=== PATIENT | male | born 1975 | race American Indian/Alaskan Native ===

== ENCOUNTER 2019-05-26 18:13 | Emergency (ER) | payer SELFPAY ==
[2019-05-26] MEDS ORDERED: ZOFRAN ODT PO ONE (19:19)
--- NOTE | 2019-05-26 19:20 | Event Note ---
ED Screening Note Date of service: 05/26/19 Time: 19:18 ED Screening Note: This is a 43 y.o. M. that presents to the ER with abdominal pain and vomiting after eating [employer] chicken 1-2 hours [employer]. This initial assessment/diagnostic orders/clinical plan/treatment(s) is/are subject to change based on patients health status, clinical progression and re- assessment by fellow clinical providers in the ED. Further treatment and workup at subsequent clinical providers discretion. Patient/guardian urged not to elope from the ED as their condition may be serious if not clinically assessed and managed. Initial orders include: Labs Given zofran odt 4 mg
[2019-05-26 19:37] LABS: Basophils # (Auto) 0.1 K/mm3 (0.0-0.1); Basophils % (Auto) 1.2 % (0.0-1.8); Eosinophils # (Auto) 0.1 K/mm3 (0.0-0.4); Eosinophils % (Auto) 3.1 % (0.0-4.3); Hematocrit 45.2 % (35.5-45.6); Hemoglobin 15.2 gm/dl (11.8-15.2); Lymphocytes # (Auto) 1.7 K/mm3 (1.2-5.4); Lymphocytes % (Auto) 41.5 % (13.4-35.0); Mean Corpuscular HGB Conc 34 % (32-34); Mean Corpuscular Volume 90 fl (84-94); Monocytes # (Auto) 0.4 K/mm3 (0.0-0.8); Platelet Count 171 K/mm3 (140-440); Red Blood Count 5.05 M/mm3 (3.65-5.03); Red Cell Distribution Width 14.4 % (13.2-15.2)
[2019-05-26] MEDS ORDERED: ALUM-MAG HYDROX-SIMETH 200-200-20MG/5ML PO ONE (19:57)
[2019-05-26] MEDS ORDERED: IBUPROFEN PO ONE (19:57)
--- NOTE | 2019-05-26 20:03 | Emergency Department Report ---
ED Abdominal Pain HPI - General Chief Complaint: Abdominal Pain Stated Complaint: FOOD POISONING Time Seen by Provider: 05/26/19 19:18 Source: patient Mode of arrival: Ambulatory Limitations: No Limitations - History of Present Illness Initial Comments: Mr. Escobedo is a 43 yo male without signficant past medical hx who ate bloody uncooked fried chicken from [email or web address] one hour prior to arrival. He was in his normal state of health prior to eating the chicken. He informed management. He received a replacement meal. He then ate the replacement entree. He has diffuse mild cramping abdominal pain. Vomited several times. No fever. Mild headache. MD Complaint: abdominal pain -: Gradual, hour(s) (1) Location: diffuse Radiation: none Migration to: no migration Severity: moderate Severity scale (0 -10): 7 Quality: cramping, aching Consistency: constant Improves With: nothing Worsens With: nothing Context: possible food poisoning Associated Symptoms: nausea, vomiting - Related Data Previous Rx's Medication Instructions Recorded Last Taken Type Promethazine [Phenergan] 25 mg PO Q6HR PRN #10 tab 05/26/19 Unknown Rx Allergies Allergy/AdvReac Type Severity Reaction Status Date / Time sulfamethoxazole Allergy Itching Verified 05/26/19 18:21 [From Bactrim] trimethoprim [From Bactrim] Allergy Itching Verified 05/26/19 18:21 ED Review of Systems ROS: Stated complaint: FOOD POISONING Other details as noted in HPI Comment: All other systems reviewed and negative Constitutional: denies: chills, fever Gastrointestinal: abdominal pain, nausea, vomiting. denies: diarrhea Neurological: headache ED Past Medical Hx - Past Medical History Previous Medical History?: No - Surgical History Past Surgical History?: No - Social History Smoking Status: Never Smoker - Medications Home Medications: Home Medications Medication Instructions Recorded Confirmed Last Taken Type Promethazine [Phenergan] 25 mg PO Q6HR PRN #10 tab 05/26/19 Unknown Rx ED Physical Exam - General Limitations: No Limitations General appearance: alert, in no apparent distress, other (appears well, sitting semi-upright, hands over stomach) - Head Head exam: Present: atraumatic, normocephalic - Eye Eye exam: Present: normal appearance - ENT ENT exam: Present: mucous membranes moist - Neck Neck exam: Present: normal inspection, full ROM - Respiratory Respiratory exam: Present: normal lung sounds bilaterally. Absent: respiratory distress, wheezes, rhonchi, stridor - Cardiovascular Cardiovascular Exam: Present: regular rate, normal rhythm, normal heart sounds. Absent: systolic murmur, diastolic murmur, rubs, gallop - GI/Abdominal GI/Abdominal exam: Present: soft, normal bowel sounds. Absent: distended, tenderness, guarding, rebound - Rectal Rectal exam: Present: deferred - Extremities Exam Extremities exam: Present: normal inspection - Back Exam Back exam: Present: normal inspection - Neurological Exam Neurological exam: Present: alert, oriented X3 - Psychiatric Psychiatric exam: Present: normal affect, normal mood - Skin Skin exam: Present: warm, dry, intact, normal color. Absent: rash ED Course Vital Signs 05/26/19 05/26/19 19:34 20:10 Temperature 98.3 F Pulse Rate 57 L Respiratory 20 16 Rate Blood Pressure 139/96 [Left] O2 Sat by Pulse 99 Oximetry ED Medical Decision Making - Lab Data Result diagrams: 05/26/19 19:25 05/26/19 19:25 Laboratory Results - last 24 hr 05/26/19 05/26/19 19:25 19:25 WBC 4.2 L RBC 5.05 H Hgb 15.2 Hct 45.2 MCV 90 MCH 30 MCHC 34 RDW 14.4 Plt Count 171 Lymph % (Auto) 41.5 H [place] % (Auto) 9.0 H Eos % (Auto) 3.1 Baso % (Auto) 1.2 Lymph # 1.7 [place] # 0.4 Eos # 0.1 Baso # 0.1 Seg Neutrophils % 45.2 Seg Neutrophils # 1.9 Sodium 142 Potassium 3.8 Chloride 102.7 Carbon Dioxide 26 Anion Gap 17 BUN 13 Creatinine 1.4 Estimated GFR > 60 BUN/Creatinine Ratio 9 Glucose 102 H Calcium 9.7 Total Bilirubin 0.90 AST 22 ALT 33 Alkaline Phosphatase 86 Total Protein 7.5 Albumin 4.5 Albumin/Globulin Ratio 1.5 Lipase 57 - Medical Decision Making Mr. Escobedo presents with abdominal pain and vomiting. Rx: food poisoning. No indication of peritonitis. given return precautions rx: promethazine CBC chemistry all within normal limits. Critical care attestation.: If time is entered above; I have spent that time in minutes in the direct care of this critically ill patient, excluding procedure time. ED Disposition Clinical Impression: Food poisoning Disposition: [id number] TO HOME OR SELFCARE Is pt being admited?: No Does the pt Need Aspirin: No Condition: Stable Instructions: Food Poisoning (ED) Additional Instructions: Please return to the ER if you develop fever or severe abdominal pain. Diarrhea is to be expected. Your illness should improve within 24 hours. Prescriptions: Promethazine [Phenergan] 25 mg PO Q6HR PRN #10 tab PRN Reason: Nausea
[2019-05-26 20:06] LABS: Alanine Aminotransferase 33 units/L (7-56); Albumin 4.5 g/dL (3.9-5); BUN/Creatinine Ratio 9; Blood Urea Nitrogen 13 mg/dL (9-20); Calcium 9.7 mg/dL (8.4-10.2); Hemolysis Index 12
[2019-05-26 20:29] VITALS: BP 135/96
== END 2019-05-26 20:28 | disposition home or self-care (01) ==
LOC: ED 18:13
DX: T62.91XA Toxic effect of unspecified noxious substance eaten as food, accidental (unintentional), initial encounter (principal); Y92.89 Other specified places as the place of occurrence of the external cause; Z88.2 Allergy status to sulfonamides; Z88.8 Allergy status to other drugs, medicaments and biological substances
CPT/HCPCS: 36415; 80053; 83690; 85025; 99283; Q0162